=== PATIENT | male | born 1965 | race Caucasian/White ===

== ENCOUNTER 2017-10-22 05:35 | Outpatient (CLI) | payer MEDICARE ==
[~2017-10-22] VITALS: Ht 170.2 cm; Wt 108.9 kg
[~2017-10-22 05:35] MED LIST: CYCL10TA9 PO; GBPN300C; HYDR-2997 PO; IBP800T PO; IBUP-792
[2017-10-22] MEDS ORDERED: LOVA40TA2 PO (10:54)
[2017-10-22] MEDS ORDERED: GABA-490 PO (10:54)
[2017-10-22] MEDS ORDERED: HYDR25TA4 PO (10:54)
[2017-10-22] MEDS ORDERED: PSEU60TA84 PO (10:54)
[2017-10-22] MEDS ORDERED: CYCL10TA9 PO (10:54)
[2017-10-22] MEDS ORDERED: RANI150T90 PO (10:54)
[2017-10-22] MEDS ORDERED: FLUT9.9S NS (10:55)
== END 2017-10-22 11:02 | disposition home or self-care (01) ==
LOC: PREOP 05:35
PROVIDERS: ATTEND Surgery
DX: Z01.818 Encounter for other preprocedural examination (principal)

== ENCOUNTER 2017-10-29 11:51 | Day surgery (SDC) | payer MEDICARE ==
[~2017-10-29] VITALS: Ht 170.2 cm; Wt 108.9 kg
[~2017-10-29 11:51] MED LIST changes: +FLUT9.9S NS; +GABA-490 PO; +HYDR25TA4 PO; +LOVA40TA2 PO; +PSEU60TA84 PO; +RANI150T90 PO
[2017-10-29] MEDS ORDERED: LACTATED RINGERS 1,000 ML IV STA (12:18)
[2017-10-29] MEDS ORDERED: LACTATED RINGERS 1,000 ML IV ONE (12:32)
[2017-10-29 12:45] VITALS: BP 124/80
[2017-10-29] MEDS ORDERED: HURRICAINE EXT TUBE (BENZOCAINE) XX ONE (13:00)
[2017-10-29] MEDS ORDERED: NAPR-915 PO (13:14)
[2017-10-29] MEDS ORDERED: MIDAZOLAM 2 MG/2 ML (VERSED) VIAL ONE (14:59)
[2017-10-29] MEDS ORDERED: PROPOFOL INJECTION 50 ML IV ONE (15:00)
--- NOTE | 2017-10-29 15:05 | Progress Note-Pre Operative ---
Pre-Operative Progress Note H&P Reviewed The H&P was reviewed, patient examined and no changes noted. Date Seen by Provider: Oct 29, 2017 Time Seen by Provider: 15:04 Date H&P Reviewed: Oct 29, 2017 Time H&P Reviewed: 15:04 Pre-Operative Diagnosis: epigastric abdominal pain, gerd, family history colon cancer CARL GERBER DO Oct 29, 2017 15:05
--- NOTE | 2017-10-29 15:51 | Progress Note-Post Operative ---
Post-Operative Progess Note Surgeon (s)/Technical Writing Lead/Mgr (s) Surgeon CARL GERBER DO Technical Writing Lead/Mgr: na Pre-Operative Diagnosis epigastric abdominal pain, gerd, family history colon cancer Post-Operative Diagnosis gastric ulcer, gastritis, sigmoid polyp, diverticulosis Procedure & Operative Findings Date of Procedure 10/29/17 Procedure Performed/Findings egd c biopsies, colonoscopy c hot bx polypectomy Anesthesia Type per ballast cleaning operator Estimated Blood Loss Estimated blood loss (mL): none Specimens/Packing Specimens Removed antrum, body x2, sigmoid polyp CARL GERBER DO Oct 29, 2017 15:50
[2017-10-29] MEDS ORDERED: SUCR1TAB36 PO (15:52)
[2017-10-29] MEDS ORDERED: PANT40TA2 PO (15:52)
--- NOTE | 2017-10-29 15:53 | Discharge Inst-Simple/Standard ---
Discharge Inst-Standard Discharge Medications New, Converted or Re-Newed RX: Transmitted to Pharmacy Patient Instructions/Follow Up Plan of Care/Instructions/FU: 3 weeks Hi Activity as Tolerated: Yes Discharge Diet: Regular Diet (high fiber) CARL GERBER DO Oct 29, 2017 15:53
[2017-10-29 16:05] VITALS: BP 117/70
[2017-10-29 16:30] VITALS: BP 129/83
[2017-10-29 17:56] VITALS: BP 129/83
--- NOTE | 2017-10-29 21:34 | OPERATIVE REPORT ---
DATE OF SERVICE: 10/29/2017 PREOPERATIVE DIAGNOSES: Gastroesophageal reflux disease, epigastric abdominal pain, family history of colon cancer. POSTOPERATIVE DIAGNOSES: Gastritis, gastric ulcer, diverticulosis, sigmoid polyp. PROCEDURE: EGD with biopsies of the antrum and body and colonoscopy with hot biopsy polypectomy x1 of sigmoid colon. SURGEON: Carl Do DO ANESTHESIA: Per COAT OPERATOR INSULATOR. ESTIMATED BLOOD LOSS: None. COMPLICATIONS: None. INDICATIONS: The patient is a 52-year-old male who has been having epigastric abdominal pain, reflux symptoms and a family history of colon cancer. He understands risks and benefits of procedure and wished to proceed with procedure. Consent was signed on the chart. DESCRIPTION OF PROCEDURE: The patient was taken to the endoscopy suite, placed in left lower recumbent position. Timeout was performed. Scope was inserted in mouth, down the esophagus, stomach and into the duodenum without difficulty. There are no polyps, mass or ulcerations. The scope was slowly retracted back into the stomach where it was further insufflated. Slight erythematous changes along with a small area of inflammation and ulcer in the body of the stomach. Biopsies of the body near the ulcer were obtained, also of the antrum. Scope was retroflexed noting no other pathology. Scope was returned to its normal position, slowly withdrawn to the distal esophagus, which had normal appearance. There are no polyps, mass or ulcerations. The scope was then slowly retracted back until completely removed. Digital rectal exam was performed. There were no palpable polyps, mass or ulcerations. The scope was inserted in the rectum and advanced all the way to the cecum with minimal difficulty. Prep was adequate. The lot of irrigation and suction. Scope was then slowly retracted back. There were no polyps, mass or ulcerations in the cecum, ascending, transverse, descending colon. Within the sigmoid colon, moderate amount of diverticulosis present. Also, the distal portion of the sigmoid colon, a small polyp was present, which hot biopsy polypectomy was performed. Scope was continued to be slowly retracted back into the rectum, where it was also retroflexed noting no other pathology. Scope was returned to its normal position, slowly withdrawn until completely removed. The patient tolerated procedure well without any complications and taken to recovery room in stable condition. RECOMMENDATIONS: The patient will be started on Protonix 40 mg daily and Carafate 1 gram four times a day. He will follow up in the office in approximately 3 weeks. He will need repeat colonoscopy in 5 years. If he has any problems prior to that, he should be reevaluated at that time. The patient also recommended high fiber and a gastric ulcer diet. Job ID: [id number] DocumentID: [id number] Dictated Date: 10/29/2017 16:31:37 Thermometer Tester Date: 10/29/2017 21:34:08 Dictated By: CARL DO DO
== END 2017-10-29 16:35 | disposition home or self-care (01) ==
LOC: ENDO 11:51
PROVIDERS: ATTEND Surgery
DX: Z12.11 Encounter for screening for malignant neoplasm of colon (principal); K63.5 Polyp of colon; K57.30 Diverticulosis of large intestine without perforation or abscess without bleeding; K29.70 Gastritis, unspecified, without bleeding; K25.9 Gastric ulcer, unspecified as acute or chronic, without hemorrhage or perforation; K31.89 Other diseases of stomach and duodenum; I10 Essential (primary) hypertension; Z80.0 Family history of malignant neoplasm of digestive organs; Z87.891 Personal history of nicotine dependence; Z79.899 Other long term (current) drug therapy
CPT/HCPCS: 88305